=== PATIENT | male | born 1955 | race Hispanic/Latino ===

== ENCOUNTER 2023-08-20 15:06 | Outpatient (CLI) | payer OTHER | END 2023-08-20 15:07 | disposition home or self-care (01) | LOC: BICRAD 15:06 | PROVIDERS: ATTEND Internal Medicine | DX: R05.3 Chronic cough (principal) | CPT/HCPCS: 71046 ==

== ENCOUNTER 2023-09-28 07:51 | Outpatient (CLI) | payer OTHER | END 2023-09-28 07:52 | disposition home or self-care (01) | LOC: BICRAD 07:51 | PROVIDERS: ATTEND Chiropractor | DX: M47.812 Spondylosis without myelopathy or radiculopathy, cervical region (principal); M50.323 Other cervical disc degeneration at C6-C7 level | CPT/HCPCS: 72050 ==

== ENCOUNTER 2024-08-12 10:31 | Outpatient (CLI) | payer OTHER | END 2024-08-12 10:32 | disposition home or self-care (01) | LOC: ULT 10:31 | PROVIDERS: ATTEND Family Medicine | DX: R31.9 Hematuria, unspecified (principal); N28.1 Cyst of kidney, acquired; R39.198 Other difficulties with micturition | CPT/HCPCS: 76770 ==